=== PATIENT | female | born 1970 | race Caucasian/White ===

== ENCOUNTER 2023-02-05 09:15 | Day surgery (SDC) | payer BC ==
[2023-02-05] MEDS ORDERED: Depo-Medrol 40 MG/ML IM ONE (09:16)
[2023-02-05] MEDS ORDERED: BUPIVACAINE 0.5% VIAL IJ ONE (09:16)
[2023-02-05 09:44] LABS: HCG URINE TEST NEGATIVE (NEGATIVE)
[2023-02-05] MEDS ORDERED: DIPRIVAN 200 MG/20 ML IV ONE (10:42)
--- NOTE | 2023-02-05 12:26 | XRAY ---
Indication: Bilateral SI joint injection. Intraoperative fluoroscopy provided for 35 seconds. 4 digital spot images submitted for interpretation demonstrates posterior needle tip projecting over the left and right SI joint. Correlate with intraoperative findings/report.
--- NOTE | 2023-02-05 12:41 | XRAY ---
35 seconds of fluoroscopy was used in surgery for a bilateral sacroiliac joint injection.
[2023-02-05] MEDS ORDERED: Lactated Ringers 1,000 ML IV ONE (14:05)
== END 2023-02-05 11:15 | disposition home or self-care (01) ==
LOC: SDC-PAIN 09:15
PROVIDERS: ATTEND Psychiatry & Neurology Pain Medicine
DX: M46.1 Sacroiliitis, not elsewhere classified (principal); E11.9 Type 2 diabetes mellitus without complications; Z79.899 Other long term (current) drug therapy
CPT/HCPCS: 27096; 36415; 72202; 77002; 81025; 82947; J1030; J2704; G0260